=== PATIENT | male | born 1990 | race African-American/Black ===

== ENCOUNTER 2017-03-04 01:15 | Emergency (ER) | payer MEDICARE, MEDICAID ==
[~2017-03-04] VITALS: Ht 177.8 cm; Wt 136.1 kg
[~2017-03-04 01:15] MED LIST: ADVAIR HFA115 MCG/21; ADVAIR HFA115 MCG/21 INH; ALL DAY ALLERGY10 M3 PO; AQUAPHOR85 GM TOP; BACITRACIN 500U30 G1 TOP; CENTANY30 GM TP; COMBIVENT INH; DEPAKOTE ER500 M1 PO; DEPAKOTE ER500 MG PO; DESMOPRESS10 MCG/0.3 NS; IBUPROFEN 200200 M1 PO; IBUPROFEN 800800 M1 PO; INVEGA SUS156 MG/1 M IM; INVEGA SUS234 MG/1.5 IM; LITHIUM CARBON300 M7 PO; MINIPRESS2 MG PO; REMERON15 MG PO; TOPAMAX 100 MG100 MG; TOPAMAX50 MG PO; TRAZODONE 150150 M1 PO; ZYRTEC10 MG PO
[2017-03-04 02:20] LABS: AMP/METHAMP Negative (Negative); BARBITURATES Negative (Negative); BENZODIAZEPINES Negative (Negative); COCAINE Negative (Negative); METHADONE Negative (Negative); OPIATES Negative (Negative); PCP Negative (Negative); THC Negative (Negative)
[2017-03-04 02:25] LABS: ABSOLUTE BASOPHILS 0.1 thou/uL (0.0-0.2); ABSOLUTE EOSINOPHILS 0.3 thou/uL (0.0-0.7); ABSOLUTE LYMPHOCYTES 2.1 thou/uL (0.8-5.3); ABSOLUTE MONOCYTES 0.8 thou/uL (0.0-1.2); ABSOLUTE NEUTROPHILS 7.9 thou/uL (1.6-8.1); BASOPHILS 0.5 %; EOSINOPHILS 2.4 %; HEMATOCRIT 46.5 % (42.0-52.0); HEMOGLOBIN 15.5 gm/dL (14.0-18.0); MCH 29.4 pg (26.0-34.0); MCHC 33.4 g/dL (28.0-37.0); MONOCYTES 7.1 %; MPV 8.3 fl. (7.2-11.1); NUCLEATED RBCS 0 /100WBC; PLATELET COUNT* 228 thou/uL (150-400); RBC 5.28 mil/uL (4.50-6.00); RDW-CV 13.4 % (10.5-14.5); WBC 11.2 thou/uL (4.0-11.0)
[2017-03-04 02:36] LABS: CALCIUM 8.8 mg/dL (8.5-10.1); CREATININE 0.8 mg/dL (0.6-1.3); POTASSIUM 3.2 mmol/L (3.5-5.1); SALICYLATE < 2.8 mg/dL (2.8-20.0)
[2017-03-04 02:37] LABS: ALCOHOL < 10 mg/dL (<10)
[2017-03-04 02:41] LABS: ALBUMIN 3.6 g/dL (3.4-5.0); TOTAL BILIRUBIN 0.2 mg/dL (<0.1-1.0); TOTAL PROTEIN 7.7 g/dL (6.4-8.2)
[2017-03-04 05:02] VITALS: BP 122/80
== END 2017-03-04 05:03 | disposition home or self-care (01) ==
LOC: M.ERS 01:15
PROVIDERS: Emergency Medicine
DX: F91.9 Conduct disorder, unspecified (principal); Z86.59 Personal history of other mental and behavioral disorders; F20.9 Schizophrenia, unspecified; F43.10 Post-traumatic stress disorder, unspecified; F17.210 Nicotine dependence, cigarettes, uncomplicated; Z88.0 Allergy status to penicillin; Z88.8 Allergy status to other drugs, medicaments and biological substances

== ENCOUNTER 2017-03-11 21:56 | Emergency (ER) | payer MEDICARE, MEDICAID ==
[~2017-03-11] VITALS: Ht 177.8 cm; Wt 136.1 kg
[2017-03-11 23:18] VITALS: BP 152/81
[2017-03-12] MEDS ORDERED: LATUDA40 MG PO (15:44)
== END 2017-03-11 23:20 | disposition home or self-care (01) ==
LOC: M.ERS 21:56
DX: F32.9 Major depressive disorder, single episode, unspecified (principal); F41.9 Anxiety disorder, unspecified; F17.210 Nicotine dependence, cigarettes, uncomplicated; F25.9 Schizoaffective disorder, unspecified; F43.10 Post-traumatic stress disorder, unspecified; F29 Unspecified psychosis not due to a substance or known physiological condition; F39 Unspecified mood [affective] disorder; F91.9 Conduct disorder, unspecified; Z88.8 Allergy status to other drugs, medicaments and biological substances; Z88.0 Allergy status to penicillin

== ENCOUNTER 2017-03-12 15:37 | Emergency (ER) | payer MEDICARE, MEDICAID ==
[~2017-03-12] VITALS: Ht 177.8 cm; Wt 102.1 kg
[2017-03-12] MEDS ORDERED: LATUDA40 MG PO (15:44)
[2017-03-12 16:33] LABS: URINE BILIRUBIN NEGATIVE (Negative); URINE BLOOD NEGATIVE (Negative); URINE CLARITY CLEAR; URINE COLOR YELLOW; URINE GLUCOSE-RANDOM NEGATIVE (Negative); URINE KETONES NEGATIVE (Negative); URINE LEUKOCYTES-REFLEX NEGATIVE (Negative); URINE NITRITE-REFLEX NEGATIVE (Negative); URINE PROTEIN NEGATIVE (Negative); URINE SPECIFIC GRAVITY >= 1.030 (1.005-1.030); URINE UROBILINOGEN 0.2 E.U./dl (0.2-1.0)
[2017-03-12 16:34] LABS: ABSOLUTE BASOPHILS 0.1 thou/uL (0.0-0.2); ABSOLUTE EOSINOPHILS 0.1 thou/uL (0.0-0.7); ABSOLUTE LYMPHOCYTES 2.3 thou/uL (0.8-5.3); ABSOLUTE MONOCYTES 0.6 thou/uL (0.0-1.2); ABSOLUTE NEUTROPHILS 7.5 thou/uL (1.6-8.1); BASOPHILS 0.6 %; EOSINOPHILS 1.1 %; HEMATOCRIT 44.1 % (42.0-52.0); HEMOGLOBIN 15.5 gm/dL (14.0-18.0); LYMPHOCYTES 21.7 %; MCH 30.3 pg (26.0-34.0); MCHC 35.1 g/dL (28.0-37.0); MCV 86.4 fL (80.0-100.0); MONOCYTES 5.3 %; NUCLEATED RBCS 0 /100WBC; PLATELET COUNT* 248 thou/uL (150-400); POLYS 71.3 %; RBC 5.11 mil/uL (4.50-6.00); RDW-CV 13.5 % (10.5-14.5); WBC 10.6 thou/uL (4.0-11.0)
[2017-03-12 16:39] LABS: CALCIUM 9.4 mg/dL (8.5-10.1); CREATININE 0.8 mg/dL (0.6-1.3); POTASSIUM 3.5 mmol/L (3.5-5.1)
[2017-03-12 16:40] LABS: AMP/METHAMP Negative (Negative); BARBITURATES Negative (Negative); BENZODIAZEPINES Negative (Negative); COCAINE Negative (Negative); METHADONE Negative (Negative); OPIATES Negative (Negative); PCP Negative (Negative); THC Negative (Negative)
[2017-03-12 16:44] LABS: ALBUMIN 3.9 g/dL (3.4-5.0); TOTAL BILIRUBIN 0.2 mg/dL (<0.1-1.0); TOTAL PROTEIN 7.8 g/dL (6.4-8.2)
[2017-03-12 16:46] LABS: SALICYLATE < 2.8 mg/dL (2.8-20.0)
[2017-03-12 16:47] LABS: ACETAMINOPHEN < 2 ug/mL (10-30); ALCOHOL < 10 mg/dL (<10)
[2017-03-12 21:06] VITALS: BP 133/62
== END 2017-03-12 21:08 | disposition home or self-care (01) ==
LOC: M.ERS 15:37
PROVIDERS: Family Medicine
DX: F32.9 Major depressive disorder, single episode, unspecified (principal); F91.9 Conduct disorder, unspecified; F39 Unspecified mood [affective] disorder; F29 Unspecified psychosis not due to a substance or known physiological condition; F25.0 Schizoaffective disorder, bipolar type; F43.10 Post-traumatic stress disorder, unspecified; F17.210 Nicotine dependence, cigarettes, uncomplicated; Z88.0 Allergy status to penicillin; Z88.8 Allergy status to other drugs, medicaments and biological substances

== ENCOUNTER 2017-03-18 22:26 | Emergency (ER) | payer MEDICARE, MEDICAID ==
[~2017-03-18] VITALS: Ht 177.8 cm; Wt 131.5 kg
[~2017-03-18 22:26] MED LIST changes: +LATUDA40 MG PO
[2017-03-19] MEDS ORDERED: XANAX 1 MG TABLE1 MG PO (00:33)
[2017-03-19 00:51] VITALS: BP 105/52
== END 2017-03-19 00:51 | disposition home or self-care (01) ==
LOC: M.ERS 22:26
DX: F32.9 Major depressive disorder, single episode, unspecified (principal); F20.9 Schizophrenia, unspecified; F43.10 Post-traumatic stress disorder, unspecified; F17.210 Nicotine dependence, cigarettes, uncomplicated; F10.99 Alcohol use, unspecified with unspecified alcohol-induced disorder; F12.10 Cannabis abuse, uncomplicated; Z88.0 Allergy status to penicillin; Z88.8 Allergy status to other drugs, medicaments and biological substances; Z86.59 Personal history of other mental and behavioral disorders

== ENCOUNTER 2017-05-18 04:14 | Emergency (ER) | payer MEDICARE, MEDICAID ==
[~2017-05-18] VITALS: Ht 177.8 cm; Wt 136.1 kg
[~2017-05-18 04:14] MED LIST changes: +XANAX 1 MG TABLE1 MG PO
[2017-05-18 04:23] VITALS: BP 129/75
== END 2017-05-18 05:24 | disposition home or self-care (01) ==
LOC: M.ERS 04:14
DX: R45.4 Irritability and anger (principal); F39 Unspecified mood [affective] disorder; F91.9 Conduct disorder, unspecified; F43.10 Post-traumatic stress disorder, unspecified; F25.9 Schizoaffective disorder, unspecified; F17.210 Nicotine dependence, cigarettes, uncomplicated; Z88.0 Allergy status to penicillin

== ENCOUNTER 2017-06-14 21:06 | Emergency (ER) | payer MEDICARE, MEDICAID ==
[~2017-06-14] VITALS: Ht 177.8 cm; Wt 131.1 kg
[2017-06-14] MEDS ORDERED: DOXYCYCLINE 10100 M1 PO (21:23)
[2017-06-14] MEDS ORDERED: PREDNISONE 20 M20 M1 PO (21:24)
[2017-06-14 21:30] VITALS: BP 145/73
== END 2017-06-14 21:31 | disposition home or self-care (01) ==
LOC: M.ERS 21:06
DX: J01.90 Acute sinusitis, unspecified (principal); B96.89 Other specified bacterial agents as the cause of diseases classified elsewhere; J20.9 Acute bronchitis, unspecified; F25.9 Schizoaffective disorder, unspecified; F17.210 Nicotine dependence, cigarettes, uncomplicated; Z88.0 Allergy status to penicillin

== ENCOUNTER 2017-07-29 13:52 | Emergency (ER) | payer MEDICARE, MEDICAID ==
[~2017-07-29] VITALS: Ht 177.8 cm; Wt 117.9 kg
[~2017-07-29 13:52] MED LIST changes: +DOXYCYCLINE 10100 M1 PO; +PREDNISONE 20 M20 M1 PO
[2017-07-29 16:20] VITALS: BP 134/83
== END 2017-07-29 16:22 | disposition home or self-care (01) ==
LOC: M.ERS 13:52
DX: F63.81 Intermittent explosive disorder (principal); F43.10 Post-traumatic stress disorder, unspecified; F25.9 Schizoaffective disorder, unspecified; F39 Unspecified mood [affective] disorder; F91.9 Conduct disorder, unspecified; F17.210 Nicotine dependence, cigarettes, uncomplicated; Z88.0 Allergy status to penicillin

== ENCOUNTER 2017-08-12 13:35 | Emergency (ER) | payer MEDICARE, MEDICAID ==
[~2017-08-12] VITALS: Ht 177.8 cm; Wt 113.4 kg
[2017-08-12] MEDS ORDERED: MAPAP500 MG PO (14:19)
[2017-08-12 14:27] VITALS: BP 130/70
== END 2017-08-12 14:28 | disposition home or self-care (01) ==
LOC: M.ERS 13:35
DX: S60.221A Contusion of right hand, initial encounter (principal); F39 Unspecified mood [affective] disorder; F91.9 Conduct disorder, unspecified; F25.9 Schizoaffective disorder, unspecified; F43.10 Post-traumatic stress disorder, unspecified; F17.210 Nicotine dependence, cigarettes, uncomplicated; Z88.0 Allergy status to penicillin; Y04.0XXA Assault by unarmed brawl or fight, initial encounter; Y93.89 Activity, other specified; Y92.89 Other specified places as the place of occurrence of the external cause; Y99.8 Other external cause status

== ENCOUNTER 2017-09-08 13:50 | Emergency (ER) | payer MEDICARE, MEDICAID ==
[~2017-09-08] VITALS: Ht 177.8 cm; Wt 99.8 kg
[~2017-09-08 13:50] MED LIST changes: +MAPAP500 MG PO
[2017-09-08 13:57] VITALS: BP 125/80
[2017-09-08] MEDS ORDERED: MEDROLDOSEPACK PO (14:36)
== END 2017-09-08 14:48 | disposition home or self-care (01) ==
LOC: M.ERS 13:50
DX: L23.7 Allergic contact dermatitis due to plants, except food (principal); F43.10 Post-traumatic stress disorder, unspecified; F25.9 Schizoaffective disorder, unspecified; F17.210 Nicotine dependence, cigarettes, uncomplicated; Z88.0 Allergy status to penicillin

== ENCOUNTER 2017-09-09 11:02 | Emergency (ER) | payer MEDICARE, MEDICAID ==
[~2017-09-09] VITALS: Ht 182.9 cm; Wt 136.1 kg
[~2017-09-09 11:02] MED LIST changes: +MEDROLDOSEPACK PO
[2017-09-09 11:24] LABS: ABSOLUTE BASOPHILS 0.1 thou/uL (0.0-0.2); ABSOLUTE EOSINOPHILS 0.1 thou/uL (0.0-0.7); ABSOLUTE LYMPHOCYTES 2.6 thou/uL (0.8-5.3); ABSOLUTE MONOCYTES 0.7 thou/uL (0.0-1.2); ABSOLUTE NEUTROPHILS 8.9 thou/uL (1.6-8.1); BASOPHILS 0.9 %; EOSINOPHILS 0.9 %; HEMATOCRIT 45.3 % (42.0-52.0); HEMOGLOBIN 15.4 gm/dL (14.0-18.0); MCH 28.9 pg (26.0-34.0); MCHC 34.1 g/dL (28.0-37.0); MCV 84.8 fL (80.0-100.0); MONOCYTES 5.8 %; MPV 8.6 fl. (7.2-11.1); NUCLEATED RBCS 0 /100WBC; PLATELET COUNT* 250 thou/uL (150-400); POLYS 71.4 %; RBC 5.33 mil/uL (4.50-6.00); RDW-CV 13.9 % (10.5-14.5); WBC 12.4 thou/uL (4.0-11.0)
[2017-09-09 11:36] LABS: URINE BILIRUBIN NEGATIVE (Negative); URINE BLOOD NEGATIVE (Negative); URINE CLARITY CLEAR; URINE COLOR YELLOW; URINE GLUCOSE-RANDOM NEGATIVE (Negative); URINE KETONES NEGATIVE (Negative); URINE LEUKOCYTES-REFLEX NEGATIVE (Negative); URINE NITRITE-REFLEX NEGATIVE (Negative); URINE PROTEIN TRACE (Negative); URINE SPECIFIC GRAVITY >= 1.030 (1.005-1.030); URINE UROBILINOGEN 0.2 E.U./dl (0.2-1.0)
[2017-09-09 11:46] LABS: CALCIUM 9.2 mg/dL (8.5-10.1); CREATININE 0.7 mg/dL (0.6-1.3); POTASSIUM 3.2 mmol/L (3.5-5.1)
[2017-09-09 11:50] LABS: ALBUMIN 3.8 g/dL (3.4-5.0); TOTAL BILIRUBIN 0.3 mg/dL (<0.1-1.0); TOTAL PROTEIN 7.5 g/dL (6.4-8.2)
[2017-09-09 11:50] LABS: AMP/METHAMP Negative (Negative); BARBITURATES Negative (Negative); BENZODIAZEPINES Negative (Negative); COCAINE Negative (Negative); METHADONE Negative (Negative); OPIATES Negative (Negative); PCP Negative (Negative); THC POSITIVE (Negative)
[2017-09-09 11:51] LABS: SALICYLATE < 2.8 mg/dL (2.8-20.0)
[2017-09-09 11:56] LABS: ACETAMINOPHEN < 2 ug/mL (10-30); ALCOHOL < 10 mg/dL (<10)
[2017-09-09 21:41] VITALS: BP 132/91
== END 2017-09-09 21:30 ==
LOC: M.ERS 11:02
PROVIDERS: Family Medicine
DX: F29 Unspecified psychosis not due to a substance or known physiological condition (principal); F25.9 Schizoaffective disorder, unspecified; F43.10 Post-traumatic stress disorder, unspecified; F17.210 Nicotine dependence, cigarettes, uncomplicated; Z88.0 Allergy status to penicillin